=== PATIENT | female | born 1970 | race African-American/Black ===

== ENCOUNTER 2017-02-09 02:33 | Emergency (ER) | payer BC ==
[~2017-02-09] VITALS: Ht 165.1 cm; Wt 79.0 kg
[2017-02-09 04:45] LABS: HEMATOCRIT 39.9 % (36.0-48.0); HEMOGLOBIN 13.4 g/dL (12.0-16.0); MEAN CORPUSCULAR HEMOGLOBIN 30.1 pg (28.0-32.0); MEAN CORPUSCULAR HGB CONC 33.6 g/dL (31.0-37.0); MEAN CORPUSCULAR VOLUME 89.5 fL (81.0-99.0); PLATELET 252 x1000/uL (130-400); RED BLOOD CELL COUNT 4.45 mill/uL (4.2-5.4); RED CELL DISTRIBUTION WIDTH 15.1 % (11.6-14.6); WHITE BLOOD COUNT 4.4 x1000/uL (4.5-11.0)
[2017-02-09] MEDS ORDERED: CARBAMAZEPINE 100MG TABLET CHEW PO ONE (05:00)
[2017-02-09 05:06] LABS: ALANINE AMINOTRANSFERASE 15 IU/L (13-61); ANION GAP 12; CALCIUM 8.8 mg/dL (8.5-10.1); CARBON DIOXIDE 26 mEq/L (21-32); CHLORIDE 106 mEq/L (98-107); INDEX HEMOLYSI 1 (1-3); INDEX ICTERIC 1 (1-4); INDEX LIPEMIC 1 (1-3); UREA NITROGEN BLOOD 12 mg/dL (7-21); eGFR > 60 mL/min (>60)
[2017-02-09 05:17] LABS: CARBAMAZEPINE 3.1 ug/mL (4-12)
[2017-02-09 06:00] VITALS: BP 131/84
== END 2017-02-09 06:35 | disposition home or self-care (01) ==
LOC: ER 02:35
DX: R56.9 Unspecified convulsions (principal); I10 Essential (primary) hypertension; D25.9 Leiomyoma of uterus, unspecified
CPT/HCPCS: 36415; 80053; 80156; 85027; 99284